=== PATIENT | male | born 1945 | race Caucasian/White ===

== ENCOUNTER 2022-09-06 13:21 | Day surgery (SDC) | payer MEDICARE ==
[~2022-09-06] VITALS: Ht 182.9 cm; Wt 102.6 kg
[~2022-09-06 13:21] MED LIST: ASPI81CH PO
--- NOTE | 2022-09-06 14:11 | NUR ---
09/06/22 1411 Jacquelyn Allen RIGHT EYE AT [address] [place] RIGHT EYE AT [address] BY [email or web address]
--- NOTE | 2022-09-06 16:35 | NUR ---
09/06/22 1635 Torin Parikh PT REPORTED SEEING FLASHING IN THE CORNERS OF HIS EYES IMMEDIATELY PRIOR TO DISCHARGE. DR. CHUNG WAS CONSULTED ABOUT PT'S CONDITION AND APPROVED DISCHARGE.
== END 2022-09-06 15:15 | disposition home or self-care (01) ==
LOC: ORSCSDS 13:21
PROVIDERS: Ophthalmology
PROC: 08RJ3JZ Replacement of Right Lens with Synthetic Substitute, Percutaneous Approach (ICD-10-PCS; principal; 2022-09-06 14:30)
DX: H25.11 Age-related nuclear cataract, right eye (principal); H21.81 Floppy iris syndrome
CPT/HCPCS: J2001; J2250; J3010; J3301; J7040; V2632

== ENCOUNTER 2022-09-13 14:51 | Day surgery (SDC) | payer MEDICARE ==
[~2022-09-13] VITALS: Ht 182.9 cm; Wt 103.2 kg
== END 2022-09-13 16:30 | disposition home or self-care (01) ==
LOC: ORSCSDS 14:51
PROVIDERS: Ophthalmology
PROC: 08RK3JZ Replacement of Left Lens with Synthetic Substitute, Percutaneous Approach (ICD-10-PCS; principal; 2022-09-13 16:00)
DX: H25.12 Age-related nuclear cataract, left eye (principal); Z96.1 Presence of intraocular lens; H21.81 Floppy iris syndrome
CPT/HCPCS: J2001; J2250; J3010; J3301; J7040; V2632